=== PATIENT | male | born 1955 | race Caucasian/White ===

== ENCOUNTER 2017-05-04 05:59 | Emergency (ER) | payer OTHER ==
[~2017-05-04] VITALS: Ht 182.9 cm; Wt 159.2 kg
[~2017-05-04 05:59] MED LIST: VENTAER INH
[2017-05-04 06:08] VITALS: BP 178/81; PULSE 69; RESP 16; TEMP 98; O2SAT 96
[2017-05-04] MEDS ORDERED: SODIUM CHLORIDE 0.9% FLUSH 10 ML FLUSH IV FLUSH PRN (06:30)
[2017-05-04] MEDS ORDERED: SODIUM CHLOR 0.9% 1000 ML INJ 1,000 ML IV SCH (06:30)
[2017-05-04] MEDS ORDERED: ONDANSETRON HCL 4 MG/2 ML VIAL IVP ONE (06:30)
--- NOTE | 2017-05-04 06:35 | PD ---
HPI Chief Complaint: Flank/Kidney Pain Time Seen by Provider: 06:26 Travel History International Travel<30 days: No Contact w/Intl Traveler<30days: No Traveled to known affect area: No History of Present Illness HPI 61-year-old male here by private vehicle for evaluation of left flank pain. Pain woke him up from sleep at around 4:30 this morning has been constant, described as sharp, moderate to severe, radiates to his left lower abdomen. Pain is associated with nausea but no vomiting. He denies urinary symptoms or hematuria. No trauma. No paresthesias or motor deficits. History of appendectomy in 2013. No fevers or chills. No history of kidney stones. I observed the patient and taken to the exam room and was apparently in pain at that time. At time of my assessment about 10 minutes later the patient reports that his pain has suddenly resolved. PFSH Past Medical History Cancer: No Cardiovascular Problems: Yes High Cholesterol: Yes Diabetes: Yes (Borderline) Patient Takes Glucophage: No Diminished Hearing: No Genitourinary: Yes (bph) Hypertension: Yes Musculoskeletal: No Neurologic: No Psychiatric: No Reproductive: No Sleep Apnea: Yes Triglycerides - High: Yes Tetanus Vaccination: Unknown Influenza Vaccination: No Past Surgical History Appendectomy: Yes Other Surgery: Yes (FISSURES) Social History Alcohol Use: No Tobacco Use: No ("Vapes") Substance Use: No Allergies-Medications (Allergen,Severity, Reaction): Coded Allergies: No Known Allergies (Unverified , 05/04/17) Reported Meds & Prescriptions Reported Meds & Active Scripts Active No Active Prescriptions or Reported Medications Review of Systems Except as stated in HPI: all other systems reviewed are Neg Physical Exam Narrative GENERAL: Well-developed, well-nourished, overweight SKIN: Focused skin assessment warm/dry. HEAD: Atraumatic. Normocephalic. EYES: Pupils equal and round. No scleral icterus. No injection or drainage. ENT: Mucous membranes pink and moist. NECK: Trachea midline. No JVD. CARDIOVASCULAR: Regular rate and rhythm. RESPIRATORY: No accessory muscle use. Clear to auscultation. Breath sounds equal bilaterally. GASTROINTESTINAL: Abdomen soft, non-tender, nondistended. MUSCULOSKELETAL: No obvious deformities. No clubbing. No cyanosis. No edema. Mild left CVA tenderness. No right CVA tenderness. No midline vertebral step- off or tenderness. NEUROLOGICAL: Awake and alert. No obvious cranial nerve deficits. Motor grossly within normal limits. Normal speech. PSYCHIATRIC: Appropriate mood and affect; insight and judgment normal. Data Data Last Documented VS Vital Signs Date Time Temp Pulse Resp B/P (MAP) Pulse Ox O2 Delivery O2 Flow Rate FiO2 05/04/17 06:08 98.0 69 16 178/81 (113) 96 Orders Orders Complete Blood Count With Diff (05/04/17 06:30) Comprehensive Metabolic Panel (05/04/17 06:30) Lipase (05/04/17 06:30) Prothrombin Time / Inr (Pt) (05/04/17 06:30) Act Partial Throm Time (Ptt) (05/04/17 06:30) Urinalysis - C+S If Indicated (05/04/17 06:30) Ct Abd/Pel W/O Iv Contrast (05/04/17 06:30) Iv Access Insert/Monitor (05/04/17 06:30) Ecg Monitoring (05/04/17 06:30) Oximetry (05/04/17 06:30) Ondansetron Inj (Zofran Inj) (05/04/17 06:30) Sodium Chlor 0.9% 1000 Ml Inj (Ns 1000 M (05/04/17 06:30) Sodium Chloride 0.9% Flush (Ns Flush) (05/04/17 06:30) Labs Laboratory Tests Test 05/04/17 06:30 05/04/17 06:51 White Blood Count 8.2 TH/MM3 Red Blood Count 4.95 MIL/MM3 Hemoglobin 14.3 GM/DL Hematocrit 42.5 % Mean Corpuscular Volume 86.0 FL Mean Corpuscular Hemoglobin 29.0 PG Mean Corpuscular Hemoglobin Concent 33.7 % Red Cell Distribution Width 13.3 % Platelet Count 140 TH/MM3 Mean Platelet Volume 8.8 FL Neutrophils (%) (Auto) 84.5 % Lymphocytes (%) (Auto) 10.2 % Monocytes (%) (Auto) 4.5 % Eosinophils (%) (Auto) 0.5 % Basophils (%) (Auto) 0.3 % Neutrophils # (Auto) 7.0 TH/MM3 Lymphocytes # (Auto) 0.8 TH/MM3 Monocytes # (Auto) 0.4 TH/MM3 Eosinophils # (Auto) 0.0 TH/MM3 Basophils # (Auto) 0.0 TH/MM3 CBC Comment DIFF FINAL Differential Comment MDM Medical Decision Making Medical Screen Exam Complete: Yes Emergency Medical Condition: Yes Medical Record Reviewed: Yes Differential Diagnosis Nephrolithiasis, ureterolithiasis, pyelonephritis, diverticulitis, AAA, dissection less likely Narrative Course At approximately 7:00 AM at the end of my shift the patient was signed out to Dr. Pfeiffer to follow-up with labs, imaging results, and formulate a disposition. Patient remains pain-free at time of signout. Scripts No Active Prescriptions or Reported Meds Juan Villalobos MD May 04, 2017 06:35
[2017-05-04 07:06] LABS: BASOPHIL % 0.3 % (0.0-2.0); EOSINOPHIL % 0.5 % (0.0-4.0); HEMATOCRIT 42.5 % (39.0-51.0); HEMO FLAGS DIFF FINAL; LYMPH % 10.2 % (9.0-44.0); LYMPHOCYTE # 0.8 TH/MM3 (1.0-4.8); MEAN CORPUSCULAR HGB CONC 33.7 % (32.0-36.0); MONO % 4.5 % (0.0-8.0); NEUT % 84.5 % (16.0-70.0); PLATELET COUNT 140 TH/MM3 (150-450); RED BLOOD COUNT 4.95 MIL/MM3 (4.50-5.90); RED CELL DISTRIBUTION WIDTH 13.3 % (11.6-17.2); WHITE BLOOD COUNT 8.2 TH/MM3 (4.0-11.0)
[2017-05-04 07:14] LABS: BLOOD, URINE NEG (NEG); GLUCOSE,URINE NEG (NEG); KETONE, URINE NEG (NEG); NITRITE,URINE NEG (NEG); PH, URINE 5.5 (5.0-8.5)
[2017-05-04 07:16] LABS: CHLORIDE 103 MEQ/L (98-107); POTASSIUM 4.1 MEQ/L (3.5-5.1); SODIUM (NA) 139 MEQ/L (136-145)
[2017-05-04 07:20] LABS: ANION GAP 10 MEQ/L (5-15); BICARBONATE 26.4 MEQ/L (21.0-32.0); BLOOD UREA NITROGEN 18 MG/DL (7-18)
[2017-05-04 07:21] LABS: APTT (PATIENT) 24.4 SEC (24.3-30.1); INTERNATIONAL NORMALIZED RATIO 0.9 RATIO; PROTHROMBIN TIME - PATIENT 10.3 SEC (9.8-11.6)
[2017-05-04 07:22] LABS: ALT (GPT) 25 U/L (12-78); AST (GOT) 16 U/L (15-37)
[2017-05-04 07:23] LABS: COMMENT (UR) CULT NOT INDICATED; CULTURE IF INDICATED CULT NOT INDICATED; METHOD OF COLLECTION CLEAN CATCH; RBC, URINE 0-3 /hpf (0-3); SQUAMOUS EPITHELIAL CELL URINE 0-5 /hpf (0-5); URINE COLOR YELLOW (YELLW/STRAW)
[2017-05-04 07:23] LABS: GLOMERULAR FILTRATION RATE 62 ML/MIN (>89)
[2017-05-04 07:24] LABS: TOTAL BILIRUBIN ADULT 0.4 MG/DL (0.2-1.0)
[2017-05-04 07:25] LABS: ALKALINE PHOSPHATASE 59 U/L (45-117)
--- NOTE | 2017-05-04 07:35 | RADRPT ---
EXAM DATE/TIME: 05/04/2017 07:18 [facility] COMPARISON: CT ABDOMEN & PELVIS W CONTRAST, August 22, 2014, 16:26. INDICATIONS : Left flank pain. ORAL CONTRAST: No oral contrast ingested. RADIATION DOSE: 23.99 CTDIvol (mGy) MEDICAL HISTORY : Diabetes mellitus type 2. Hypertension. SURGICAL HISTORY : Appendectomy. ENCOUNTER: Initial ACUITY: 1 day PAIN SCALE: 2/10 LOCATION: Left flank TECHNIQUE: Volumetric scanning of the abdomen and pelvis was performed. Using automated exposure control and ad justment of the mA and/or kV according to patient size, radiation dose was kept as low as reasonably achievable to obtain optimal diagnostic quality images. DICOM format image data is available electro nically for review and comparison. FINDINGS: LOWER LUNGS: The visualized lower lungs are clear. LIVER: Diffuse mild low density without lesion. There is no dilation of the biliary tree. No calcified gal lstones. SPLEEN: Mildly enlarged measuring 14.9 cm. PANCREAS: Within normal limits. KIDNEYS: Normal in size and shape. There is no mass, stone, or hydronephrosis. ADRENAL GLANDS: Within normal limits. VASCULAR: There is no aortic aneurysm. There is mild atherosclerotic disease. BOWEL/MESENTERY: The stomach, small bowel, and colon demonstrate no acute abnormality. There is no free intraperitone al air or fluid. Clips are present the base of the cecum related to prior appendectomy. ABDOMINAL WALL: There is a small fat containing umbilical hernia. RETROPERITONEUM: There is no lymphadenopathy. BLADDER: No wall thickening or mass. REPRODUCTIVE: Within normal limits. INGUINAL: There is no lymphadenopathy or hernia. MUSCULOSKELETAL: No acute abnormality. CONCLUSION: 1. No acute abnormality is identified to explain the left flank pain. There no renal stones or signs of obstruction. 2. Nonacute findings include hepatic steatosis, mild splenomegaly, and mild atherosclerotic disease. Cheko Rg MD on May 04, 2017 at 7:30 Board Certified Radiologist. This report was verified electronically.
--- NOTE | 2017-05-04 07:41 | PD ---
Data Data Last Documented VS Vital Signs Date Time Temp Pulse Resp B/P (MAP) Pulse Ox O2 Delivery O2 Flow Rate FiO2 05/04/17 06:08 98.0 69 16 178/81 (113) 96 Orders Orders Complete Blood Count With Diff (05/04/17 06:30) Comprehensive Metabolic Panel (05/04/17 06:30) Lipase (05/04/17 06:30) Prothrombin Time / Inr (Pt) (05/04/17 06:30) Act Partial Throm Time (Ptt) (05/04/17 06:30) Urinalysis - C+S If Indicated (05/04/17 06:30) Ct Abd/Pel W/O Iv Contrast (05/04/17 06:30) Iv Access Insert/Monitor (05/04/17 06:30) Ecg Monitoring (05/04/17 06:30) Oximetry (05/04/17 06:30) Ondansetron Inj (Zofran Inj) (05/04/17 06:30) Sodium Chlor 0.9% 1000 Ml Inj (Ns 1000 M (05/04/17 06:30) Sodium Chloride 0.9% Flush (Ns Flush) (05/04/17 06:30) Labs Laboratory Tests Test 05/04/17 06:30 05/04/17 06:51 Urine Collection Type CLEAN CATCH Urine Color YELLOW Urine Turbidity CLEAR Urine pH 5.5 Urine Specific Morrison 1.022 Urine Protein NEG mg/dL Urine Glucose (UA) NEG mg/dL Urine Ketones NEG mg/dL Urine Occult Blood NEG Urine Nitrite NEG Urine Bilirubin NEG Urine Leukocyte Esterase NEG Urine RBC 0-3 /hpf Urine Squamous Epithelial Cells 0-5 /hpf Microscopic Urinalysis Comment CULT NOT INDICATED Urine Collection Time 06:30 White Blood Count 8.2 TH/MM3 Red Blood Count 4.95 MIL/MM3 Hemoglobin 14.3 GM/DL Hematocrit 42.5 % Mean Corpuscular Volume 86.0 FL Mean Corpuscular Hemoglobin 29.0 PG Mean Corpuscular Hemoglobin Concent 33.7 % Red Cell Distribution Width 13.3 % Platelet Count 140 TH/MM3 Mean Platelet Volume 8.8 FL Neutrophils (%) (Auto) 84.5 % Lymphocytes (%) (Auto) 10.2 % Monocytes (%) (Auto) 4.5 % Eosinophils (%) (Auto) 0.5 % Basophils (%) (Auto) 0.3 % Neutrophils # (Auto) 7.0 TH/MM3 Lymphocytes # (Auto) 0.8 TH/MM3 Monocytes # (Auto) 0.4 TH/MM3 Eosinophils # (Auto) 0.0 TH/MM3 Basophils # (Auto) 0.0 TH/MM3 CBC Comment DIFF FINAL Differential Comment Prothrombin Time 10.3 SEC Prothromb Time International Ratio 0.9 RATIO Activated Partial Thromboplast Time 24.4 SEC Blood Urea Nitrogen 18 MG/DL Creatinine 1.20 MG/DL Random Glucose 183 MG/DL Total Protein 7.4 GM/DL Albumin 3.6 GM/DL Calcium Level 9.0 MG/DL Alkaline Phosphatase 59 U/L Aspartate Amino Transf (AST/SGOT) 16 U/L Alanine Aminotransferase (ALT/SGPT) 25 U/L Total Bilirubin 0.4 MG/DL Sodium Level 139 MEQ/L Potassium Level 4.1 MEQ/L Chloride Level 103 MEQ/L Carbon Dioxide Level 26.4 MEQ/L Anion Gap 10 MEQ/L Estimat Glomerular Filtration Rate 62 ML/MIN Lipase 195 U/L [facility] Supervised Visit with SERAFIN: No Narrative Course This is a 61-year-old male who presents to the emergency department with left flank pain. Evidently he was very uncomfortable, writhing when he arrived. His pain traveled to the left lower quadrant. Here in the emergency department his pain completely subsided. CT abdomen and pelvis was obtained which is reassuring and urinalysis was obtained which was normal. Patient's symptoms are consistent with a kidney stone that he likely passed. He appears well and has no complaints currently. I think is safe for discharge. If he has recurrence of symptoms he was asked to return to the emergency department. Diagnosis Primary Impression: Flank pain Patient Instructions: General Instructions Additional Instruction: If you develop severe pain, inability to eat or drink, or fever return to the emergency department. Return to the emergency department if your pain returns. Med/Other Pt SpecificInfo: No Change to Meds Scripts No Active Prescriptions or Reported Meds Disposition: 01 DISCHARGE HOME Condition: Stable Yuridia Pfeiffer MD May 04, 2017 07:41
== END 2017-05-04 08:14 | disposition home or self-care (01) ==
LOC: PHED 05:59
DX: R10.9 Unspecified abdominal pain (principal); I10 Essential (primary) hypertension
CPT/HCPCS: 74176; 80053; 81001; 83690; 85025; 85610; 85730

== ENCOUNTER 2017-07-17 09:01 | Emergency (ER) | payer OTHER ==
[2017-07-17 09:04] VITALS: BP 164/80; PULSE 84; RESP 16; TEMP 98.3; O2SAT 95
[2017-07-17] MEDS ORDERED: IBUP1TAB7 PO (09:15)
[2017-07-17] MEDS ORDERED: ROBA500T PO (09:15)
[2017-07-17] MEDS ORDERED: KETOROLAC TROMETHAMINE 60 MG/2 ML (IM) VIAL IM ONE (09:15)
--- NOTE | 2017-07-17 09:16 | PD ---
HPI Chief Complaint: Musculoskeletal Complaint Time Seen by Provider: 09:28 Travel History International Travel<30 days: Yes Contact w/Intl Traveler<30days: Yes History of Present Illness HPI 61-year-old male here with left shoulder pain 1 week. Pain started after a golf outing 7 days ago. Pain worsened after he was lifting heavy furniture. He denies anesthesia or weakness of any extremity. He denies chest pain or shortness of breath. Pain is reproducible to palpation of the anterior left shoulder and range of motion. He is improved with resting the shoulder. He reports previous shoulder injury and his 20s and he was a basal picture. PFSH Past Medical History Cancer: No Cardiovascular Problems: Yes High Cholesterol: Yes Diabetes: Yes (Borderline) Patient Takes Glucophage: No Diminished Hearing: No Genitourinary: Yes (bph) Hypertension: Yes Musculoskeletal: No Neurologic: No Psychiatric: No Reproductive: No Sleep Apnea: Yes Triglycerides - High: Yes Past Surgical History Appendectomy: Yes Other Surgery: Yes (FISSURES) Social History Alcohol Use: No Tobacco Use: Yes ("Vapes") Substance Use: No Allergies-Medications (Allergen,Severity, Reaction): Coded Allergies: No Known Allergies (Unverified Adverse Reaction, Unknown, 07/17/17) Reported Meds & Prescriptions Reported Meds & Active Scripts Active Robaxin (Methocarbamol) 500 Mg Tab 500 Mg PO TID Ibuprofen 800 Mg Tab 800 Mg PO Q6HR PRN Review of Systems Except as stated in HPI: all other systems reviewed are Neg General / Constitutional: No: Fever Eyes: No: Visual changes HENT: No: Headaches Cardiovascular: No: Chest Pain or Discomfort Respiratory: No: Shortness of Breath Physical Exam Narrative GENERAL: Well-nourished, well-developed patient. SKIN: Focused skin assessment warm/dry. HEAD: Normocephalic. CARDIOVASCULAR: Regular rate and rhythm without murmurs, gallops, or rubs. RESPIRATORY: Breath sounds equal bilaterally. No accessory muscle use. GASTROINTESTINAL: Abdomen soft, non-tender, nondistended. MUSCULOSKELETAL: No cyanosis, or edema. Tenderness to the anterior aspect of the shoulder. No step-off or deformity. Pain with abduction of the shoulder. 2+ distal pulses. Normal sensation. Brisk cap refill. Data Data Last Documented VS Vital Signs Date Time Temp Pulse Resp B/P (MAP) Pulse Ox O2 Delivery O2 Flow Rate FiO2 11/19/17 09:26 07/17/17 09:04 98.3 84 16 95 Room Air Orders Orders Ketorolac Inj (Toradol Inj) (07/17/17 09:15) Splint Or Brace Apply/Monitor (07/17/17 09:13) [facility] Medical Decision Making Medical Screen Exam Complete: Yes Emergency Medical Condition: Yes Differential Diagnosis Shoulder sprain, strain, fracture Narrative Course 61-year-old male here with left shoulder pain 1 week. Pain started after a golf outing 7 days ago. Pain worsened after he was lifting heavy furniture. He denies paresthesia or weakness of any extremity. He denies chest pain or shortness of breath. Pain is reproducible to palpation of the anterior left shoulder and range of motion. I do not suspect bony fracture. He will be treated for shoulder sprain. Sepsis Criteria Multiple Organ Dysfunction Syn: Evidence -2 organs failing Diagnosis Primary Impression: Left shoulder strain Qualified Codes: S46.912A - Strain of unspecified muscle, fascia and tendon at shoulder and upper arm level, left arm, initial encounter Referrals: Orthopedist Primary Care Physician Additional Instructions: With a sling to immobilize the shoulder and for comfort. Take the medications as prescribed. Follow-up with her primary doctor this week for recheck Scripts Methocarbamol (Robaxin) 500 Mg Tab 500 MG PO TID for Muscle Spasm, #15 TAB 0 Refills Prov: Pat Cardenas 07/17/17 Ibuprofen (Ibuprofen) 800 Mg Tab 800 MG PO Q6HR Y for PAIN, #40 TAB 0 Refills Prov: Pat Cardenas 07/17/17 Disposition: 01 DISCHARGE HOME Condition: Stable Pat Cardenas Jul 17, 2017 09:16
== END 2017-07-17 09:39 | disposition home or self-care (01) ==
LOC: PHEFT 09:01
DX: S46.912A Strain of unspecified muscle, fascia and tendon at shoulder and upper arm level, left arm, initial encounter (principal); X50.9XXA Other and unspecified overexertion or strenuous movements or postures, initial encounter; Y93.53 Activity, golf
CPT/HCPCS: 96372; 99285; J1885